=== PATIENT | male | born 1970 | race African-American/Black ===

== ENCOUNTER 2019-11-14 20:40 | Emergency (ER) | payer SELFPAY ==
[~2019-11-14] VITALS: Ht 170.2 cm; Wt 96.0 kg
[2019-11-14 23:12] LABS: BASOPHILS % 2.4 % (0.0-2.0); EOSINOPHILS % 3.1 % (0.0-5.0); HEMATOCRIT. 45.2 % (42.0-52.0); HEMOGLOBIN. 14.9 g/dL (14.0-18.0); MEAN CORPUSCULAR HEMOGLOBIN 28.1 pg (28.0-32.0); MEAN CORPUSCULAR VOLUME 85.6 fL (80.0-94.0); MEAN PLATELET VOLUME 10.3 fl (7.4-10.4); MONOCYTES % 11.6 % (2.0-8.0); NEUTROPHILS % 43.9 % (40.0-76.0); PLATELET 175 x1000/uL (130-400); RED BLOOD CELL COUNT 5.28 mill/uL (4.7-6.1); RED CELL DISTRIBUTION WIDTH 14.5 % (11.6-14.6)
[2019-11-14 23:17] LABS: CHLORIDE 111 mEq/L (98-107)
[2019-11-15 02:27] VITALS: BP 170/98
== END 2019-11-15 03:13 | disposition home or self-care (01) ==
LOC: ER 20:40
DX: R42 Dizziness and giddiness (principal); I10 Essential (primary) hypertension; F17.290 Nicotine dependence, other tobacco product, uncomplicated
CPT/HCPCS: 36415; 71045; 80053; 84484; 85025; 93005; 99285